=== PATIENT | male | born 1995 | race Caucasian/White ===

== ENCOUNTER → 2021-12-27 10:37 | Outpatient (BNVA) | payer OTHER, SELFPAY | PROVIDERS: Visit Provider Nurse Practitioner Family | DX: A59.00 Urogenital trichomoniasis, unspecified (principal); Z72.51 High risk heterosexual behavior | CPT/HCPCS: 80053 ==

== ENCOUNTER → 2024-05-18 11:58 | Outpatient (BNVA) | payer MEDICAID, SELFPAY | PROVIDERS: Visit Provider Nurse Practitioner Family | DX: J32.0 Chronic maxillary sinusitis (principal); Z13.220 Encounter for screening for lipoid disorders; J40 Bronchitis, not specified as acute or chronic; M54.2 Cervicalgia; R05.9 Cough, unspecified; H10.9 Unspecified conjunctivitis; J01.00 Acute maxillary sinusitis, unspecified; H10.32 Unspecified acute conjunctivitis, left eye; F17.200 Nicotine dependence, unspecified, uncomplicated | CPT/HCPCS: 80053; 80061; 85025 ==

== ENCOUNTER → 2025-03-15 11:01 | Outpatient (BNVA) | payer MEDICAID, SELFPAY | PROVIDERS: Visit Provider Nurse Practitioner Family | DX: J02.9 Acute pharyngitis, unspecified (principal) | CPT/HCPCS: 87071; 87880 ==